=== PATIENT | male | born 1940 | race Caucasian/White ===

== ENCOUNTER 2016-09-30 08:03 | Day surgery (SDC) | payer BC ==
[2016-09-27 16:31] LABS: HEMATOCRIT 42.7 % (40.0-51.0); HEMOGLOBIN 14.8 g/dL (13.6-17.8); MEAN CORPUS HGB CONC 34.7 g/dL (32.0-36.0); MEAN CORPUSCULAR HEMOGLOB 34.7 pg (26.0-34.0); MEAN PLATELET VOLUME 10.8 fL (9.2-13.0); PLATELET COUNT 179 10/3/uL (150-400); RBC DISTRIBUTION WIDTH 12.9 % (12.0-16.0); RED CELL COUNT 4.27 10/6/uL (4.7-6.1)
[2016-09-27 16:36] LABS: MANUAL DIFF YES %; WHITE BLOOD CELLS 52.3 10/3/uL (4.5-10.5)
[2016-09-27 16:40] LABS: BUN (BLOOD UREA NITROGEN) 20 MG/DL (6-23); CALCIUM, SERUM 8.8 MG/DL (8.5-10.4); CHLORIDE, SERUM 107 MMOL/L (96-112); CO2 (CARBON DIOXIDE) 27 MMOL/L (24-34); CREATININE 1.14 MG/DL (0.70-1.30); GFR AFRICAN AMERICAN 71 ML/MIN (>=60); GFR NON AFRICAN AMERICAN 61 ML/MIN (>=60); GLUCOSE, SERUM 124 MG/DL (60-99); SODIUM, SERUM 141 MMOL/L (135-148)
[2016-09-27 17:31] LABS: BAND NEUTROPHILS 1 %; EOSINOPHILS 1 %; EOSINOPHILS ABSOLUTE (CALC) 0.52 10/3/uL (0.0-0.53); LYMPHOCYTES 87 %; MONOCYTES 6 %; MONOCYTES ABSOLUTE (CALC) 3.14 10/3/uL (0.21-1.20); NEUTROPHILS ABSOLUTE (CALC) 3.14 10/3/uL (2.02-8.40); SEGMENTED NEUTROPHIL (0) 5 %; TOTAL NUCLEATED CELLS 100
[2016-09-27 17:32] LABS: MACROCYTES 1+ (5-10/OIF) (0-5/OIF)
--- NOTE | ~2016-09-30 | OP ---
Record Of Operation [facility] [address] [place]. [address] NAME: ELOISA MENDEZ : 36 STATUS : [facility] – [place], [place] PAT#: [id number] AGE: 76 ADM/REG DATE : 09/30/16 MR#: [id number] REPORT SERV DATE: 09/30/16 DICTATED BY: EMILY GEORGES DATE: 09/30/16 REPORT STATUS : Draft TRANSCRIBED BY: MODL DATE: 09/30/16 DATE OF PROCEDURE: 09/30/2016 PREOPERATIVE DIAGNOSIS: Thin level malignant melanoma, right pentecostalism. POSTOPERATIVE DIAGNOSIS: Thin level malignant melanoma, right pentecostalism. PROCEDURE PERFORMED: 1. Wide local excision, right pentecostalism malignant melanoma. 2. Complex layered closure of 7 x 3.5 cm defect. 3. AlloDerm closure of 2 x 3 cm central defect. SURGEON: Emily Georges M.D. MINERAL TECHNOLOGIST: Ty. ANESTHESIA: General. COMPLICATIONS: None. CONDITION: Stable to recovery. INDICATIONS: A 76-year-old male with a thin level malignant melanoma of the right pentecostalism. PROCEDURE IN DETAIL: The patient was identified in the preoperative holding, taken back to the operating room, and placed supine on the operating room table. General anesthesia was established. He was prepped and draped in a standard fashion for the operation. The right pentecostalism area biopsy site was outlined with a 1 to 1.5 cm margin and infiltrated subcutaneously with 2 mL of 1% lidocaine with 1:100,000 epinephrine. Using 2.5x loupe magnification and headlight illumination, the operation commenced. A 15 blade was used to make the skin incision down through the temporalis muscle and fascia. The galea was encountered superiorly as well. A needle-tip cautery was used to excise the lesion through the subcutaneous tissues down to the galea in a circumferential fashion. A stitch was placed at 12 o'clock and orientation performed. A photograph was taken. The superficial temporal artery was ligated with 3-0 Vicryl suture. This was a branch that was going through the superior portion of the wound towards the forehead. The wound was 4 x 4 cm in dimension and then Burow's triangles were taken from the 12 to 3 o'clock position and the 6 to 9 o'clock position to allow more linear closure. The defect was 7 cm x 3.5 cm. The edges were closed with 3-0 Vicryl and 4-0 interrupted Prolene. Two #1 Prolenes were placed in a [id number] fashion making the central portion of the wound 2 x 3 cm and this was covered with AlloDerm graft. This was meshed and inset with a 5-0 chromic suture and a bolster dressing with silk sutures. The patient was awakened and taken to recovery in stable condition. There were no complications. Record Of Operation [address] [address] NAME: ELOISA MENDEZ : 36 STATUS : [facility] [place], [place] PAT#: [id number] AGE: 76 ADM/REG DATE : 09/30/16 MR#: [id number] REPORT SERV DATE: 09/30/16 DICTATED BY: EMILY GEORGES DATE: 09/30/16 REPORT STATUS : Draft TRANSCRIBED BY: EDITH DATE: 09/30/16 PH/EDITH Emily Georges M.D. / [id number] CC: Darlin Freitas M.D.
[~2016-09-30 08:03] MED LIST: ASAB PO; CPZ10 PO; FISH-EPA1000 MG PO; FLOMAX4 PO; IMBRU140C PO; TOPXL25 PO; ZOCOR20 PO; ZOVIRAX400 MG PO
== END 2016-09-30 19:18 | disposition home or self-care (01) ==
LOC: SDC 08:03
PROVIDERS: Specialist
PROC: 0HB1XZZ Excision of Face Skin, External Approach (ICD-10-PCS; principal; 2016-09-30 09:30)
DX: C43.39 Malignant melanoma of other parts of face (principal); C91.10 Chronic lymphocytic leukemia of B-cell type not having achieved remission; I10 Essential (primary) hypertension; G47.30 Sleep apnea, unspecified; H91.90 Unspecified hearing loss, unspecified ear; E78.00 Pure hypercholesterolemia, unspecified; M19.90 Unspecified osteoarthritis, unspecified site; K57.92 Diverticulitis of intestine, part unspecified, without perforation or abscess without bleeding; K42.9 Umbilical hernia without obstruction or gangrene; K80.80 Other cholelithiasis without obstruction; Z98.890 Other specified postprocedural states; Z88.6 Allergy status to analgesic agent; Z96.1 Presence of intraocular lens; Z97.4 Presence of external hearing-aid; Z98.41 Cataract extraction status, right eye; Z98.42 Cataract extraction status, left eye; Z92.21 Personal history of antineoplastic chemotherapy; Z92.3 Personal history of irradiation
CPT/HCPCS: 80048; 85025; 88305; A9270-GY; J0690; J2250; J2270; J2405; J2710; J3010; Q4116